=== PATIENT | male | born 1965 | race Hispanic/Latino ===

== ENCOUNTER 2018-03-27 13:15 | Emergency (ER) | payer OTHER ==
[2018-03-27 14:06] LABS: Magnesium 2.5 mg/dL (1.8-2.4)
--- NOTE | 2018-03-27 14:15 | RAD REPORT ---
EXAM DESCRIPTION: CT - Head Brain Wo Cont - 03/27/2018 2:02 pm CLINICAL HISTORY: Right-sided numbness COMPARISON: None. TECHNIQUE: Computed axial tomography of the head was obtained. IV contrast was not requested. All CT scans are performed using dose optimization technique as appropriate and may include automated exposure control or mA/KV adjustment according to patient size. FINDINGS: An intracranial bleed is not seen . The ventricles are normal in caliber. No extra-axial fluid collection is noted. Fluid within the sinuses/ mastoids is not seen. IMPRESSION: No acute intracranial abnormality is seen. If patient's symptoms persist MRI of the bra in would be recommended.
[2018-03-27] MEDS ORDERED: MEPERIDINE HCL 25 MG/0.5 ML ONE (14:16)
[2018-03-27 14:31] LABS: Absolute Lymphocytes (CBC) 1.2 K/uL (0.7-4.9); Absolute Monocytes 0.5 K/uL (0.1-1.3); Absolute Neutrophil 3.9 K/uL (1.8-8.0); Basophils % 0.7 % (0-1.3); Eosinophils % 2.1 % (0-4.4); Hematocrit 40.5 % (39.6-49.0); Lymphocytes % 20.5 % (15.3-44.8); MCH 32.6 pg (27.0-35.0); MCV 94.6 fL (80-100); MPV 9.3 fL (7.6-11.3); Monocytes % 9.5 % (3.3-12.3); RBC Red Blood Cell Count 4.28 M/uL (4.33-5.43)
[2018-03-27 14:32] LABS: Protime INR 0.93
--- NOTE | 2018-03-27 15:39 | RAD REPORT ---
EXAM DESCRIPTION: Ariane Angio03/27/2018 3:16 pm CLINICAL HISTORY: Right-sided numbness COMPARISON: None TECHNIQUE: 50 cc Isovue [address] angiogram neck was performed. Coronal and sagittal reconstruction was done. 3D MIP reconstruction was performed All CT scans are performed using dose optimization technique as appropriate and may include automated exposure control or mA/KV adjustment according to patient size. FINDINGS: The common carotid, internal carotid and external carotid arteries are normal caliber. A dissection is not seen. An occlusion is not noted IMPRESSION: Unremarkable exam
--- NOTE | 2018-03-27 15:42 | RAD REPORT ---
EXAM DESCRIPTION: CTHead angio03/27/2018 3:13 pm CLINICAL HISTORY: Right-sided numbness COMPARISON: None TECHNIQUE: CT angiogram of the head was obtained. 50 cc Isovue 370 was intravenously. Coronal and sa gittal reconstruction was performed. All CT scans are performed using dose optimization technique as appropriate and may include automated exposure control or mA/KV adjustment according to patient size. FINDINGS: The basilar, internal carotid, anterior cerebral, middle cerebral and posterior cerebral a rteries are normal caliber. An aneurysm is not seen. A significant stenosis is not noted. IMPRESSION: Unremarkable CT angiogram head.
[2018-03-27 16:10] LABS: Urine Blood NEGATIVE (NEG); Urine Glucose NEGATIVE (NEG); Urine Protein NEGATIVE (NEG)
--- NOTE | 2018-03-27 17:22 | EDPHYS ---
Physician Documentation [facility] Name: Cameron Timmons Age: 52 yrs Sex: Male : 1965 Arrival Date: 03/27/2018 Time: 13:17 Bed 25 Private MD: ED Physician Idris Griffith HPI: 03/27 13:36 This 52 yrs old Male presents to ER via EMS with complaints of Facial Droop, rn High Blood Pressure. 13:36 The patient presents to the emergency department with weakness of the right side of the rn face, that is severe. Onset: The symptoms/episode began/occurred 3 day(s) ago. Associated signs and symptoms: Pertinent positives: headache, Pertinent negatives: altered mental status, chills, fever, nausea, neck stiffness, syncope, double vision, visual field changes, loss of vision. Severity of symptoms: At their worst the symptoms were moderate in the emergency department the symptoms are unchanged. Current symptoms: paralysis or paresis, that is moderate. The patient has not experienced similar symptoms in the past. Reports right facial paralysis and tingling for 3 days, assoc with posterior headache, no vomiting, blood pressure has been running high for several days, states taking his losartan. No other focal weakness/numbness/speech problem/gait problem.. Historical: - Allergies: 13:32 No Known Allergies; kr2 - Home Meds: 13:32 losartan 50 mg oral tab 1 tab once daily [Active]; naproxen 375 mg Oral TbEC 1 tab 2 kr2 times per day [Active]; pravastatin 40 mg oral tab 1 tab once daily [Active]; sildenafil citrate 100mg [Active]; aspirin 81 mg Oral chew 1 tab once daily [Active]; - PMHx: 13:32 Hypertension; Hyperlipidemia; Erectile Dysfunction; GERD; Chronic pain; Hernia; kr2 familial hypoalphalipoproteinemia; - PSHx: 13:32 Hernia repair; kr2 - Immunization history:: Adult Immunizations unknown. - Social history:: Smoking status: Patient/guardian denies using tobacco. - Ebola Screening: : No symptoms or risks identified at this time. - Family history:: not pertinent. - Hospitalizations: : No recent hospitalization is reported. ROS: 13:36 Constitutional: Negative for fever, chills, and weight loss, Eyes: Negative for injury, rn pain, redness, and discharge, Neck: Negative for injury, pain, and swelling, Cardiovascular: Negative for chest pain, palpitations, and edema, Respiratory: Negative for shortness of breath, cough, wheezing, and pleuritic chest pain, Abdomen/GI: Negative for abdominal pain, nausea, vomiting, diarrhea, and constipation, Back: Negative for injury and pain, MS/Extremity: Negative for injury and deformity, Skin: Negative for injury, rash, and discoloration, Neuro: Negative for seizure Exam: 13:36 Constitutional: This is a well developed, well nourished patient who is awake, alert, rn and in no acute distress. Head/Face: Normocephalic, atraumatic. Eyes: Pupils equal round and reactive to light, extra-ocular motions intact. Periorbital areas with no swelling, redness, or edema. Neck: Trachea midline, no thyromegaly or masses palpated, and no cervical lymphadenopathy. Supple, full range of motion without nuchal rigidity, or vertebral point tenderness. No Meningismus. Cardiovascular: Regular rate and rhythm with a normal S1 and S2. No gallops, murmurs, or rubs. Normal PMI, no JVD. No pulse deficits. Respiratory: Lungs have equal breath sounds bilaterally, clear to auscultation and percussion. No rales, rhonchi or wheezes noted. No increased work of breathing, no retractions or nasal flaring. Abdomen/GI: Soft, non-tender, with normal bowel sounds. No distension or tympany. No guarding or rebound. No evidence of tenderness throughout. MS/ Extremity: Pulses equal, no cyanosis. Neurovascular intact. Full, normal range of motion. Equal circumference. Neuro: Awake and alert, GCS 15, oriented to person, place, time, and situation. + right almost complete paralysis of face, involves both upper and lower face, normal sensation to right face. Motor strength 5/5 in all extremities. Sensory grossly intact. Cerebellar exam normal. Vital Signs: 13:21 BP 185 / 96; Pulse 78; Resp 16; Temp 99.1(O); Pulse Ox 97% on R/A; Weight 72.57 kg; kr2 Height 5 ft. 0 in. (152.40 cm); Pain 3/10; 14:18 BP 172 / 93 RA Sitting (auto/reg); Pulse 57 MON; Resp 17 S; Pulse Ox 97% on R/A; jp3 16:13 BP 158 / 91 RA Sitting (auto/reg); Pulse 52 MON; Resp 22 S; Pulse Ox 98% on R/A; jp3 17:04 BP 151 / 93; Pulse 67; Resp 17; Pulse Ox 97% on R/A; kr2 13:21 Body Mass Index 31.25 (72.57 kg, 152.40 cm) kr2 NIH Stroke Scale Scores: 17:36 NIHSS Score: 1 kr2 MDM: 13:19 Patient medically screened. rn 17:20 Data reviewed: vital signs, nurses notes, lab test result(s), EKG, radiologic studies, rn CT scan, and as a result, I will discharge patient. Counseling: I had a detailed discussion with the patient and/or guardian regarding: the historical points, exam findings, and any diagnostic results supporting the discharge/admit diagnosis, lab results, radiology results, the need for outpatient follow up, to return to the emergency department if symptoms worsen or persist or if there are any questions or concerns that arise at home. Special discussion: I discussed with the patient/guardian in detail that at this point there is no indication for admission to the hospital. It is understood, however, that if the symptoms persist or worsen the patient needs to return immediately for re-evaluation. Based on the history and exam findings, there is no indication for further emergent testing or inpatient evaluation. I discussed with the patient/guardian the need to see the neurologist for further evaluation of the symptoms. I discussed with the patient/guardian the need to see the primary care provider for further evaluation of the symptoms. 17:20 ED course: CT/CTA negative for acute abnormality, normal neuro exam except for weakness rn of right face, involves upper and lower face.. 03/27 13:29 Order name: Basic Metabolic Panel rn 03/27 13:29 Order name: CBC with Diff rn 03/27 13:29 Order name: Magnesium rn 03/27 13:29 Order name: Protime (+inr) rn 03/27 13:29 Order name: Ptt, Activated rn 03/27 13:29 Order name: Troponin (emerg Dept Use Only) rn 03/27 14:06 Order name: Basic Metabolic Panel; Complete Time: 14:11 EDMS 03/27 14:06 Order name: Magnesium; Complete Time: 14:11 EDMS 03/27 14:10 Order name: Troponin (Emerg Dept Use Only); Complete Time: 14:11 EDMS 03/27 14:32 Order name: CBC with Automated Diff; Complete Time: 14:51 EDMS 03/27 14:33 Order name: Protime (+INR); Complete Time: 14:51 EDMS 03/27 14:33 Order name: PTT, Activated Partial Thromb; Complete Time: 14:51 EDMS 03/27 14:37 Order name: Urine Dipstick--Ancillary (enter results) eb 03/27 15:17 Order name: Glucose, Ancillary Testing; Complete Time: 15:49 EDMS 03/27 13:29 Order name: CT Head Brain wo Cont rn 03/27 13:29 Order name: EKG; Complete Time: 13:30 rn 03/27 13:29 Order name: Cardiac monitoring; Complete Time: 13:40 rn 03/27 13:29 Order name: EKG - Nurse/Tech; Complete Time: 14:10 rn 03/27 13:29 Order name: IV Saline Lock; Complete Time: 13:40 rn 03/27 13:29 Order name: Labs collected and sent; Complete Time: 13:40 rn 03/27 13:29 Order name: NPO; Complete Time: 13:40 rn 03/27 13:29 Order name: O2 Per Protocol; Complete Time: 13:40 rn 03/27 13:29 Order name: O2 Sat Monitoring; Complete Time: 13:40 rn 03/27 14:15 Order name: CT; Complete Time: 14:51 EDMS 03/27 15:39 Order name: CT; Complete Time: 15:49 EDMS 03/27 15:42 Order name: CT; Complete Time: 15:49 EDMS 03/27 16:11 Order name: Urine Dipstick-Ancillary; Complete Time: 16:50 EDMS Administered Medications: 14:15 Drug: Demerol 25 mg Route: IVP; Site: left antecubital; kr2 14:35 Follow up: Response: No adverse reaction; Pain is decreased kr2 Point of Care Testing: Blood Glucose: 13:33 Blood Glucose: 96 mg/dL; kr2 Ranges: Critical Glucose Levels:Adult <50 mg/dl or >400 mg/dl <40 mg/dl or >180 mg/dl Disposition: 03/27/18 17:21 Discharged to Home. Impression: Wolff's palsy. - Condition is Stable. - Discharge Instructions: Wolff Palsy, Adult. - Prescriptions for Acyclovir 800 mg Oral Tablet - take 1 tablet by ORAL route 5 times per day for 10 days; 50 tablet. Medrol (Rafal) 4 mg Oral Tablets, Dose Pack - take 1 tablet by ORAL route as directed - follow package instructions; 1 packet. - Medication Reconciliation Form, Thank You Letter, Antibiotic Education, Prescription Opioid Use, Work release form form. - Follow up: Zachary Toscano MD; When: 5 - 6 days; Reason: Recheck today's complaints, Re-evaluation by your physician. - Problem is new. - Symptoms are unchanged. NIH Stroke Scale - NIH Stroke Score Date: 03/27/2018 Time: 17:36 Total Score = 1 1a. Level of Consciousness (LOC) - 0(Alert) 1b. Level of Consciousness (LOC) (Year \T\ Age) - 0(Both) 1c. LOC Commands (Open \T\ Closes Eyes/Glass Washer) - 0(Both) 2. Best Gaze (Lateral Gaze Paresis) - 0(Normal) 3. Visual Field Loss - 0(No visual loss) 4. Facial Palsy - 1(Minor Paralysis) 5a. Left Arm: Motor (10-second hold) - 0(No drift) 5b. Right Arm: Motor (10-second hold) - 0(No drift) 6a. Left Leg: Motor (5-second hold - always test supine) - 0(No drift) 6b. Right Leg: Motor (5-second hold - always test supine) - 0(No drift) 7. Limb Ataxia (finger/nose \T\ heel/silver - test with eyes open) - 0(Absent) 8. Sensory Loss (pinprick arms/legs/face) - 0(Normal) 9. Best Language: Aphasia (description/naming/reading) - 0(No aphasia) 10. Dysarthria (speech clarity - read or repeat words) - 0(Normal) 11. Extinction and Inattention (visual/tactile/auditory/spatial/personal) - 0(No abnormality) Initials: kr2 Signatures: Dispatcher [employer] Idris Grossman MD MD rn Reaves, Karey, RN RN kr2 Corrections: (The following items were deleted from the chart) 17:39 17:21 03/27/2018 17:21 Discharged to Home. Impression: Wolff's palsy. Condition kr2 is Stable. Forms are Medication Reconciliation Form, Thank You Letter, Antibiotic Education, Prescription Opioid Use. Follow up: Zachary Toscano; When: 5 - 6 days; Reason: Recheck today's complaints, Re-evaluation by your physician. Problem is new. Symptoms are unchanged. rn
--- NOTE | 2018-03-27 17:22 | ER ---
Nurse's Notes [facility] Name: Cameron Timmons Age: 52 yrs Sex: Male : 1965 Arrival Date: 03/27/2018 Time: 13:17 Bed 25 Private MD: Diagnosis: Wolff's palsy Presentation: 03/27 13:18 Presenting complaint: EMS states: patient was seen at the [facility] across the [facility] today kr2 for numbness to the right side of his face, facial droop and slurred speech that started Monday. He has a history of hypertension and hyperlipidemia. Transition of care: patient was received from another setting of care (ambulatory primary care physician practice), [facility]. Onset of symptoms was March 25, 2018. Risk Assessment: Do you want to hurt yourself or someone else? Patient reports no desire to harm self or others. Initial Sepsis Screen: Does the patient meet any 2 criteria? No. Patient's initial sepsis screen is negative. Does the patient have a suspected source of infection? No. Patient's initial sepsis screen is negative. Care prior to arrival: IV initiated. 20 GA, in the right antecubital area. 13:18 Method Of Arrival: EMS: [facility] kr2 13:18 Acuity: BONITA 3 kr2 13:34 Pre-hospital glucose is not applicable to this patient. kr2 Triage Assessment: 13:33 The onset of the patients symptoms was March 25, 2018 at 17:00. General: Appears in no kr2 apparent distress. comfortable, well groomed, well developed, well nourished, Behavior is calm, cooperative, appropriate for age. 13:34 Neuro: Reports pressure to back of head. kr2 Stroke Activation: Symptom onset > 6 hours Physician: Stroke Attending; Name: ; Notified At: ; Arrived At: Physician: Chief Stroke Resident; Name: ; Notified At: ; Arrived At: Physician: Stroke Resident; Name: ; Notified At: ; Arrived At: Physician: ED Attending; Name: ; Notified At: ; Arrived At: Physician: ED Resident; Name: ; Notified At: ; Arrived At: Historical: - Allergies: 13:32 No Known Allergies; kr2 - Home Meds: 13:32 losartan 50 mg oral tab 1 tab once daily [Active]; naproxen 375 mg Oral TbEC 1 tab 2 kr2 times per day [Active]; pravastatin 40 mg oral tab 1 tab once daily [Active]; sildenafil citrate 100mg [Active]; aspirin 81 mg Oral chew 1 tab once daily [Active]; - PMHx: 13:32 Hypertension; Hyperlipidemia; Erectile Dysfunction; GERD; Chronic pain; Hernia; kr2 familial hypoalphalipoproteinemia; - PSHx: 13:32 Hernia repair; kr2 - Immunization history:: Adult Immunizations unknown. - Social history:: Smoking status: Patient/guardian denies using tobacco. - Ebola Screening: : No symptoms or risks identified at this time. - Family history:: not pertinent. - Hospitalizations: : No recent hospitalization is reported. Screenin:22 Abuse screen: Denies threats or abuse. Denies injuries from another. Nutritional kr2 screening: No deficits noted. Tuberculosis screening: No symptoms or risk factors identified. Fall Risk None identified. Assessment: 13:22 Pain: Complains of pain in occipital area and base of the skull Pain does not radiate. kr2 Pain currently is 3 out of 10 on a pain scale. Quality of pain is described as pressure, Is continuous, Alleviated by nothing. Neuro: Level of Consciousness is awake, alert, obeys commands, Oriented to person, place, time, situation, Appropriate for age Systems Admin are equal bilaterally Moves all extremities. Speech is normal, Facial droop on right, Pupils are PERRLA, Numbness in right side of face. 13:22 General: Appears in no apparent distress. Behavior is calm, cooperative, appropriate kr2 for age. Cardiovascular: Capillary refill < 3 seconds in bilateral fingers Patient's skin is warm and dry. Respiratory: Airway is patent Respiratory effort is even, unlabored, Respiratory pattern is regular, symmetrical. GI: Abdomen is round non-distended, Bowel sounds present X 4 quads. : Denies burning with urination. EENT: Oral mucosa is moist. Derm: Skin is intact, is healthy with good turgor, Skin is pink, warm \T\ dry. Musculoskeletal: Circulation, motion, and sensation intact. 13:44 T-PA (Activase) Screening:. kr2 14:15 Reassessment: Patient appears in no apparent distress at this time. Patient and/or kr2 family updated on plan of care and expected duration. Pain level reassessed. Patient is alert, oriented x 3, equal unlabored respirations, skin warm/dry/pink. 15:11 Reassessment: Patient appears in no apparent distress at this time. Patient and/or kr2 family updated on plan of care and expected duration. Pain level reassessed. Patient is alert, oriented x 3, equal unlabored respirations, skin warm/dry/pink. Pain is decreased Patient states feeling better. 16:00 Reassessment: Patient appears in no apparent distress at this time. Patient and/or kr2 family updated on plan of care and expected duration. Pain level reassessed. Patient is alert, oriented x 3, equal unlabored respirations, skin warm/dry/pink. Patient denies pain at this time. 17:03 Reassessment: Patient appears in no apparent distress at this time. Patient and/or kr2 family updated on plan of care and expected duration. Pain level reassessed. Patient is alert, oriented x 3, equal unlabored respirations, skin warm/dry/pink. Patient denies pain at this time. 17:35 Patient has been NPO before screening. The patient is alert, and able to follow kr2 commands. The patient does not exhibit slurred or garbled speech. The patient is not exhibiting difficulty speaking. The patient does not exhibit difficulty understanding words. The patient is able to swallow own secretions with no drooling or need for suction. Patient tolerated one teaspoon of water. No drooling, immediate coughing, gurgling, or clearing of the throat was noted. The patient tolerated 90mL of water. No drooling, immediate coughing, gurgling, or clearing of the throat was noted. The patient passed the bedside swallow screening. Oral medications may be given as ordered. Contact Physician for further diet orders. Provider notified of bedside swallow screening results: Idris Griffith MD. 17:37 Reassessment: Patient appears in no apparent distress at this time. kr2 Vital Signs: 13:21 BP 185 / 96; Pulse 78; Resp 16; Temp 99.1(O); Pulse Ox 97% on R/A; Weight 72.57 kg; kr2 Height 5 ft. 0 in. (152.40 cm); Pain 3/10; 14:18 BP 172 / 93 RA Sitting (auto/reg); Pulse 57 MON; Resp 17 S; Pulse Ox 97% on R/A; jp3 16:13 BP 158 / 91 RA Sitting (auto/reg); Pulse 52 MON; Resp 22 S; Pulse Ox 98% on R/A; jp3 17:04 BP 151 / 93; Pulse 67; Resp 17; Pulse Ox 97% on R/A; kr2 13:21 Body Mass Index 31.25 (72.57 kg, 152.40 cm) kr2 NIH Stroke Scale Scores: 17:36 NIHSS Score: 1 kr2 ED Course: 13:15 Patient has correct armband on for positive identification. Bed in low position. Call kr2 light in reach. Side rails up X2. hospital monitor on. Pulse ox on. NIBP on. Door closed. Warm blanket given. Head of bed elevated. 13:17 Patient arrived in ED. kr2 13:19 Idris Griffith MD is Attending Physician. rn 13:21 Triage completed. kr2 13:34 Arm band placed on. kr2 13:35 Urine collected: clean catch specimen, clear, desiree colored. jp3 13:39 Anel Vasquez, AIDEE is Primary Nurse. kr2 13:39 EKG done, by arrt technologist. reviewed by Idris Griffith MD. 3 13:[address] via wheelchair. sw 14:06 CT completed. Patient tolerated procedure well. Patient moved back from CT. sw 15:[address] vm2 15:13 CT completed. Patient tolerated procedure well. Patient moved back from CT. vm2 17:21 Zachary Toscano MD is Referral Physician. rn 17:38 No provider procedures requiring assistance completed. IV discontinued, intact, kr2 bleeding controlled, No redness/swelling at site. Pressure dressing applied. Administered Medications: 14:15 Drug: Demerol 25 mg Route: IVP; Site: left antecubital; kr2 14:35 Follow up: Response: No adverse reaction; Pain is decreased kr2 Point of Care Testing: Blood Glucose: 13:33 Blood Glucose: 96 mg/dL; kr2 Ranges: Outcome: 17:21 Discharge ordered by . rn 17:38 Discharged to home ambulatory, with family. kr2 17:38 Condition: good 17:38 Discharge instructions given to patient, family, Instructed on discharge instructions, follow up and referral plans. medication usage, Demonstrated understanding of instructions, follow-up care, medications, Prescriptions given X 2. 17:39 Patient left the ED. kr2 NIH Stroke Scale - NIH Stroke Score Date: 03/27/2018 Time: 17:36 Total Score = 1 1a. Level of Consciousness (LOC) - 0(Alert) 1b. Level of Consciousness (LOC) (Year \T\ Age) - 0(Both) 1c. LOC Commands (Open \T\ Closes Eyes/Sales Engineer) - 0(Both) 2. Best Gaze (Lateral Gaze Paresis) - 0(Normal) 3. Visual Field Loss - 0(No visual loss) 4. Facial Palsy - 1(Minor Paralysis) 5a. Left Arm: Motor (10-second hold) - 0(No drift) 5b. Right Arm: Motor (10-second hold) - 0(No drift) 6a. Left Leg: Motor (5-second hold - always test supine) - 0(No drift) 6b. Right Leg: Motor (5-second hold - always test supine) - 0(No drift) 7. Limb Ataxia (finger/nose \T\ heel/silver - test with eyes open) - 0(Absent) 8. Sensory Loss (pinprick arms/legs/face) - 0(Normal) 9. Best Language: Aphasia (description/naming/reading) - 0(No aphasia) 10. Dysarthria (speech clarity - read or repeat words) - 0(Normal) 11. Extinction and Inattention (visual/tactile/auditory/spatial/personal) - 0(No abnormality) Initials: [facility] Signatures: Idris Griffith MD MD rn Warren, Shannon sw McGuire, Victoria 2 Anel Vasquez RN RN 2 Brandi Cottrell 3 [place] Lozoya 3 Corrections: (The following items were deleted from the chart) 13:25 13:18 Presenting complaint: EMS states: patient was seen at the [facility] across the [address] today for numbness to the right side of his face, facial droop and slurred speech that started Monday. He has a history of hypertension and hyperlipidemia [facility] 13:26 13:22 Neuro: Level of Consciousness is awake, alert, obeys commands, Oriented [facility] to person, place, time, situation, Appropriate for age Systems Admin are equal bilaterally Moves all extremities. Speech is slurred, Facial droop on right, Pupils are PERRLA, Numbness in right side of face [facility] 13:44 13:18 Presenting complaint: EMS states: patient was seen at the [facility] across the [address] today for numbness to the left side of his face, facial droop and slurred speech that started Monday. He has a history of hypertension and hyperlipidemia kr2 13:44 13:22 Neuro: Level of Consciousness is awake, alert, obeys commands, Oriented kr2 to person, place, time, situation, Appropriate for age Systems Admin are equal bilaterally Moves all extremities. Speech is slurred, Facial droop on left, Pupils are PERRLA, Numbness in left side of face kr2 14:24 13:22 Neuro: Level of Consciousness is awake, alert, obeys commands, Oriented kr2 to person, place, time, situation, Appropriate for age Systems Admin are equal bilaterally Moves all extremities. Speech is slurred, Facial droop on right, Pupils are PERRLA, Numbness in left side of face kr2 17:37 13:22 Neuro: Level of Consciousness is awake, alert, obeys commands, Oriented kr2 to person, place, time, situation, Appropriate for age Systems Admin are equal bilaterally Moves all extremities. Speech is slurred, Facial droop on right, Pupils are PERRLA, Numbness in right side of face kr2 17:37 13:44 NIHSS Score: 2 [place] [id number]
--- NOTE | 2018-03-27 18:21 | EKG ---
Test Date: 2018-03-27 Test Time: 13:33:49 [place]ethistler Operator: DANN MEASUREMENT RESULTS: Intervals: Rate: 59 RI: 156 QRSD: 96 QT: 402 QTc: 397 [place]: P: 28 RI: 156 QRS: -25 T: -18 INTERPRETIVE STATEMENTS: Sinus bradycardia Voltage criteria for left ventricular hypertrophy Nonspecific T wave abnormality Abnormal ECG No previous ECG available for comparison Electronically Signed On 03-27-18 18:20:37 CDT by Bishop العراقي
== END 2018-03-27 17:39 | disposition home or self-care (01) ==
LOC: ER 13:15
DX: G51.0 Bell's palsy (principal); I10 Essential (primary) hypertension; E78.5 Hyperlipidemia, unspecified; R51 Headache; Z79.82 Long term (current) use of aspirin
CPT/HCPCS: 36415; 70450; 70496; 70498; 80048; 81003; 82962; 83735; 84484; 85025; 85610; 85730; 93005; 96374; 99285; J2175; Q9967

== ENCOUNTER 2018-07-22 12:53 | Emergency (ER) | payer OTHER ==
--- NOTE | 2018-07-22 14:04 | ER ---
Nurse's Notes [facility] Name: Cameron Timmons Age: 53 yrs Sex: Male : 1965 Arrival Date: 07/22/2018 Time: 12:54 Bed Waiting Private MD: None, None Diagnosis: Cellulitis of right upper limb;Cellulitis of chest wall-right lateral chest wall Presentation: 07/22 13:06 Presenting complaint: Patient states: Rash under right axilla for one week getting la1 worse. Transition of care: patient was not received from another setting of care. Onset of symptoms was July 22, 2018. Risk Assessment: Do you want to hurt yourself or someone else? Patient reports no desire to harm self or others. Initial Sepsis Screen: Does the patient meet any 2 criteria? No. Patient's initial sepsis screen is negative. Does the patient have a suspected source of infection? No. Patient's initial sepsis screen is negative. Care prior to arrival: None. 13:06 Method Of Arrival: Ambulatory la1 13:06 Acuity: BONITA 5 la1 Historical: - Allergies: 13:07 No Known Allergies; la1 - PMHx: 13:07 Chronic pain; Erectile Dysfunction; familial hypoalphalipoproteinemia; GERD; Hernia; la1 Hyperlipidemia; Hypertension; - Immunization history:: Adult Immunizations. - Social history:: Smoking status: Patient/guardian denies using tobacco. - Ebola Screening: : No symptoms or risks identified at this time. Screenin:01 Abuse screen: Denies threats or abuse. Nutritional screening: No deficits noted. la1 Tuberculosis screening: No symptoms or risk factors identified. Fall Risk None identified. Assessment: 14:00 General: Appears in no apparent distress. Behavior is calm, cooperative. Pain: Denies la1 pain. Neuro: Level of Consciousness is awake, alert, obeys commands, Oriented to person, place, time, situation. Cardiovascular: Capillary refill < 3 seconds Patient's skin is warm and dry. Respiratory: Airway is patent Respiratory effort is even, unlabored, Respiratory pattern is regular, symmetrical, Breath sounds are clear bilaterally. GI: No signs and/or symptoms were reported involving the gastrointestinal system. : No signs and/or symptoms were reported regarding the genitourinary system. Derm: Rash noted that is itchy, papular, red, on anterior aspect of right lateral abdomen. Vital Signs: 13:07 BP 160 / 87; Pulse 71; Resp 16; Temp 97.3; Pulse Ox 98% on R/A; Weight 74.84 kg; Height la1 5 ft. 0 in. (152.40 cm); 13:07 Body Mass Index 32.22 (74.84 kg, 152.40 cm) la1 ED Course: 12:54 Patient arrived in ED. sb2 12:54 None, None is Private Physician. sb2 13:06 Triage completed. la1 13:07 Arm band placed on left wrist. la1 13:22 Birgit Navarro FNP-C is PHCP. kb 13:22 Go Rowell MD is Attending Physician. kb 14:01 Patient has correct armband on for positive identification. la1 14:03 No provider procedures requiring assistance completed. Patient did not have IV access la1 during this emergency room visit. Administered Medications: No medications were administered Outcome: 14:03 Discharged to home ambulatory. la1 14:03 Condition: stable 14:03 Discharge instructions given to patient, Instructed on discharge instructions, follow up and referral plans. medication usage, Demonstrated understanding of instructions, follow-up care, medications, Prescriptions given X 1. 14:04 Discharge ordered by MD. kb 14:12 Patient left the ED. la1 Signatures: Birgit Navarro FNP-C FNP-Ckb Attema, Lee, RN RN la1 Helena Davis sb2
--- NOTE | 2018-07-22 14:04 | EDPHYS ---
Physician Documentation [facility] Name: Cameron Timmons Age: 53 yrs Sex: Male : 1965 Arrival Date: 07/22/2018 Time: 12:54 Bed Waiting Private MD: None, None ED Physician Go Rowell HPI: 07/22 14:06 This 53 yrs old Male presents to ER via Ambulatory with complaints of Rash. kb 14:06 the patient presents with a swollen area of the right bicep and right lateral anterior kb chest. Description: erythematous, swollen, warm. Onset: The symptoms/episode began/occurred 1 week(s) ago. Possible cause(s): unknown. Associated signs and symptoms: Pertinent positives: erythema, swelling, Pertinent negatives: discharge, drainage, foreign body sensation, fever, headache, nausea, shortness of breath, vomiting. Modifying factors: the symptoms are alleviated by nothing, the symptoms are aggravated by nothing. Severity of symptoms: At their worst the symptoms were moderate, in the emergency department the symptoms are unchanged. The patient has not experienced similar symptoms in the past. The patient has not recently seen a physician. Pt reports rash that started out like an insect bite then spread. Tried using cortisone cream, but it made it worse. Historical: - Allergies: 13:07 No Known Allergies; la1 - PMHx: 13:07 Chronic pain; Erectile Dysfunction; familial hypoalphalipoproteinemia; GERD; Hernia; la1 Hyperlipidemia; Hypertension; - Immunization history:: Adult Immunizations. - Social history:: Smoking status: Patient/guardian denies using tobacco. - Ebola Screening: : No symptoms or risks identified at this time. ROS: 14:05 Constitutional: Negative for fever, chills, and weight loss, ENT: Negative for injury, kb pain, and discharge, Neck: Negative for injury, pain, and swelling, Cardiovascular: Negative for chest pain, palpitations, and edema, Respiratory: Negative for shortness of breath, cough, wheezing, and pleuritic chest pain, Abdomen/GI: Negative for abdominal pain, nausea, vomiting, diarrhea, and constipation, Back: Negative for injury and pain, MS/Extremity: Negative for injury and deformity, Neuro: Negative for headache, weakness, numbness, tingling, and seizure. 14:05 Skin: Positive for erythema, swelling, of the right lateral anterior chest and right bicep. Exam: 14:05 Constitutional: This is a well developed, well nourished patient who is awake, alert, kb and in no acute distress. Head/Face: Normocephalic, atraumatic. Neck: Trachea midline, no thyromegaly or masses palpated, and no cervical lymphadenopathy. Supple, full range of motion without nuchal rigidity, or vertebral point tenderness. No Meningismus. Chest/axilla: Normal chest wall appearance and motion. Nontender with no deformity. No lesions are appreciated. Cardiovascular: Regular rate and rhythm with a normal S1 and S2. No gallops, murmurs, or rubs. Normal PMI, no JVD. No pulse deficits. Respiratory: Lungs have equal breath sounds bilaterally, clear to auscultation and percussion. No rales, rhonchi or wheezes noted. No increased work of breathing, no retractions or nasal flaring. Abdomen/GI: Soft, non-tender, with normal bowel sounds. No distension or tympany. No guarding or rebound. No evidence of tenderness throughout. MS/ Extremity: Pulses equal, no cyanosis. Neurovascular intact. Full, normal range of motion. Neuro: Awake and alert, GCS 15, oriented to person, place, time, and situation. Cranial nerves II-XII grossly intact. Motor strength 5/5 in all extremities. Sensory grossly intact. Cerebellar exam normal. Normal gait. 14:05 Skin: cellulitis, that is mild, that is moderate, on the right bicep and right lateral anterior chest. Vital Signs: 13:07 BP 160 / 87; Pulse 71; Resp 16; Temp 97.3; Pulse Ox 98% on R/A; Weight 74.84 kg; Height la1 5 ft. 0 in. (152.40 cm); 13:07 Body Mass Index 32.22 (74.84 kg, 152.40 cm) la1 MDM: 13:59 Patient medically screened. kb 14:05 Data reviewed: vital signs, nurses notes. Data interpreted: Pulse oximetry: on room air kb is 98 %. Interpretation: normal. Administered Medications: No medications were administered Disposition: 07/23 07:39 Co-signature as Attending Physician, Go Rowell MD I agree with the assessment and clem plan of care. Disposition: 07/22/18 14:04 Discharged to Home. Impression: Cellulitis of right upper limb, Cellulitis of chest wall - right lateral chest wall. - Condition is Stable. - Discharge Instructions: Cellulitis, Adult, [id number]. - Prescriptions for Bactrim DS 800- 160 mg Oral Tablet - take 1 tablet by ORAL route every 12 hours for 10 days; 20 tablet. - Medication Reconciliation Form, Thank You Letter, Antibiotic Education, Prescription Opioid Use form. - Follow up: Emergency Department; When: As needed; Reason: Worsening of condition. Follow up: Private Physician; When: 2 - 3 days; Reason: Recheck today's complaints, Continuance of care, Re-evaluation by your physician. Signatures: Birgit Navarro, METER AND SERVICE LINE INSPECTOR-C METER AND SERVICE LINE INSPECTOR-Héctorb Go Rowell MD MD cha Attema, Lee RN RN la1 Corrections: (The following items were deleted from the chart) 07/22 14:12 14:04 07/22/2018 14:04 Discharged to Home. Impression: Cellulitis of right upper limb; la1 Cellulitis of chest wall - right lateral chest wall. Condition is Stable. Forms are Medication Reconciliation Form, Thank You Letter, Antibiotic Education, Prescription Opioid Use. Follow up: Emergency Department; When: As needed; Reason: Worsening of condition. Follow up: Private Physician; When: 2 - 3 days; Reason: Recheck today's complaints, Continuance of care, Re-evaluation by your physician. kb
== END 2018-07-22 14:12 | disposition home or self-care (01) ==
LOC: ER 12:53
DX: L03.113 Cellulitis of right upper limb (principal); L03.313 Cellulitis of chest wall
CPT/HCPCS: 99282

== ENCOUNTER 2020-03-03 12:10 | Emergency (ER) | payer OTHER ==
--- NOTE | 2020-03-03 13:32 | EDPHYS ---
Physician Documentation [facility] Name: Cameron Timmons Age: 54 yrs Sex: Male : 1965 Arrival Date: 03/03/2020 Time: 12:29 Bed 12 Private MD: ED Physician Go Rowell HPI: 03/03 13:27 This 54 yrs old Male presents to ER via Ambulatory with complaints of Bee kb Sting, Rash - on back,arms and abdomen. 13:27 The patient's rash thought to be caused by an unknown cause. The rash is located on the kb posterior aspect of right lateral abdomen and anterior aspect of right lateral abdomen. The rash can be described as macular, papular. Onset: The symptoms/episode began/occurred yesterday. Associated signs and symptoms: Pertinent positives: itching. Severity of symptoms: At their worst the symptoms were moderate in the emergency department the symptoms are unchanged. The patient has not experienced similar symptoms in the past. The patient has not recently seen a physician. Pt reports he was stung by a bee on Monday, developed itchy rash on Monday. Historical: - Allergies: 12:32 No Known Allergies; ll1 - PMHx: 12:32 Hypertension; familial hypoalphalipoproteinemia; Erectile Dysfunction; Chronic pain; ll1 GERD; Hernia; Hyperlipidemia; - Immunization history:: Flu vaccine is not up to date. - Social history:: Smoking status: Patient denies any tobacco usage or history of. Patient uses alcohol, Patient/guardian denies using street drugs. ROS: 13:25 Constitutional: Negative for fever, chills, and weight loss, Cardiovascular: Negative kb for chest pain, palpitations, and edema, Respiratory: Negative for shortness of breath, cough, wheezing, and pleuritic chest pain, Abdomen/GI: Negative for abdominal pain, nausea, vomiting, diarrhea, and constipation, Back: Negative for injury and pain, MS/Extremity: Negative for injury and deformity, Neuro: Negative for headache, weakness, numbness, tingling, and seizure. 13:25 Skin: Positive for rash, of the anterior aspect of right lateral abdomen and posterior aspect of right lateral abdomen. Exam: 13:25 Constitutional: This is a well developed, well nourished patient who is awake, alert, kb and in no acute distress. Head/Face: Normocephalic, atraumatic. Chest/axilla: Normal chest wall appearance and motion. Nontender with no deformity. No lesions are appreciated. Cardiovascular: Regular rate and rhythm with a normal S1 and S2. No gallops, murmurs, or rubs. Normal PMI, no JVD. No pulse deficits. Respiratory: Lungs have equal breath sounds bilaterally, clear to auscultation and percussion. No rales, rhonchi or wheezes noted. No increased work of breathing, no retractions or nasal flaring. Abdomen/GI: Soft, non-tender, with normal bowel sounds. No distension or tympany. No guarding or rebound. No evidence of tenderness throughout. MS/ Extremity: Pulses equal, no cyanosis. Neurovascular intact. Full, normal range of motion. Neuro: Awake and alert, GCS 15, oriented to person, place, time, and situation. Cranial nerves II-XII grossly intact. Motor strength 5/5 in all extremities. Sensory grossly intact. Cerebellar exam normal. Normal gait. 13:25 Skin: rash a moderate rash is noted, rash can be described as macular, papular, on the posterior aspect of right lateral abdomen and anterior aspect of right lateral abdomen. Vital Signs: 12:32 BP 161 / 112; Pulse 68; Resp 18; Temp 99.1; Pulse Ox 98% ; Pain 0/10; ll1 MDM: 13:07 Patient medically screened. kb 13:20 Data reviewed: vital signs, nurses notes. Data interpreted: Pulse oximetry: on room air kb is 98 %. Interpretation: normal. 13:28 Counseling: I had a detailed discussion with the patient and/or guardian regarding: the kb historical points, exam findings, and any diagnostic results supporting the discharge/admit diagnosis, the need for outpatient follow up, a family practitioner, to return to the emergency department if symptoms worsen or persist or if there are any questions or concerns that arise at home. Administered Medications: 14:00 Drug: predniSONE 40 mg Route: PO; ss Disposition: 20:34 Co-signature as Attending Physician, Go Rowell MD I agree with the assessment and clem plan of care. Disposition: 03/03/20 13:31 Discharged to Home. Impression: Rash and other nonspecific skin eruption. - Condition is Stable. - Discharge Instructions: Rash, [id number], Allergies, [id number]. - Prescriptions for Pepcid 20 mg Oral Tablet - take 1 tablet by ORAL route every 12 hours for 5 days; 10 tablet. Prednisone 20 mg Oral Tablet - take 1 tablet by ORAL route once daily for 5 days; 5 tablet. - Medication Reconciliation Form, Thank You Letter, Antibiotic Education, Prescription Opioid Use form. - Follow up: Emergency Department; When: As needed; Reason: Worsening of condition. Follow up: Private Physician; When: 2 - 3 days; Reason: Recheck today's complaints, Continuance of care, Re-evaluation by your physician. Signatures: Birgit Navarro, FABIEN-C PLASTIC PRODUCTION MACHINE SETTER-CkGo Chand MD MD cha Smirch, Shelby, RN RN ss Henry Herrera RN RN ll1 Corrections: (The following items were deleted from the chart) 14:17 13:31 03/03/2020 13:31 Discharged to Home. Impression: Rash and other nonspecific skin ll1 eruption. Condition is Stable. Forms are Medication Reconciliation Form, Thank You Letter, Antibiotic Education, Prescription Opioid Use. Follow up: Emergency Department; When: As needed; Reason: Worsening of condition. Follow up: Private Physician; When: 2 - 3 days; Reason: Recheck today's complaints, Continuance of care, Re-evaluation by your physician. kb
--- NOTE | 2020-03-03 13:32 | ER ---
Nurse's Notes [facility] Name: Cameron Timmons Age: 54 yrs Sex: Male : 1965 Arrival Date: 03/03/2020 Time: 12:29 Bed 12 Private MD: Diagnosis: Rash and other nonspecific skin eruption Presentation: 03/03 12:32 Chief complaint: Patient states: Insect sting (bee) to back on Monday. Started to have ll1 rash yesterday to back, arm , and abdomen. Slight itch. Coronavirus screen: Proceed with normal triage. Patient denies a cough. Patient denies shortness of breath or difficulty breathing. Patient denies measured and/or subjective temperature greater than 100.4F prior to today's visit. Patient denies travel on a cruise ship or to a country the [facility] currently lists as an affected area. Patient denies contact with known and/or suspected case of COVID-19. Ebola Screen: Patient denies travel to an Ebola-affected area in the 21 days before illness onset. Onset: The symptoms/episode began/occurred yesterday. Anaphylaxis evaluation, the patient reports or I have noted the following symptoms which indicate a significant risk of anaphylaxis:. Initial Sepsis Screen: Does the patient meet any 2 criteria? No. Patient's initial sepsis screen is negative. Risk Assessment: Do you want to hurt yourself or someone else? Patient reports no desire to harm self or others. Onset of symptoms was March 01, 2020. 12:32 Method Of Arrival: Ambulatory ll1 12:32 Acuity: BONITA 4 ll1 Historical: - Allergies: 12:32 No Known Allergies; ll1 - PMHx: 12:32 Hypertension; familial hypoalphalipoproteinemia; Erectile Dysfunction; Chronic pain; ll1 GERD; Hernia; Hyperlipidemia; - Immunization history:: Flu vaccine is not up to date. - Social history:: Smoking status: Patient denies any tobacco usage or history of. Patient uses alcohol, Patient/guardian denies using street drugs. Screenin:07 Abuse screen: Denies threats or abuse. Denies injuries from another. Nutritional ss screening: No deficits noted. Tuberculosis screening: Never had TB. Fall Risk None identified. Assessment: 13:07 General: Appears in no apparent distress. comfortable, Behavior is calm, cooperative. ss Pain: Denies pain. Neuro: Level of Consciousness is awake, alert, obeys commands, Oriented to person, place, time, situation, Denies blurred vision dizziness. Cardiovascular: Capillary refill < 3 seconds is brisk in bilateral. Respiratory: Airway is patent Respiratory effort is even, unlabored, Respiratory pattern is regular, symmetrical, Breath sounds are clear bilaterally. GI: Patient currently denies diarrhea, nausea, vomiting. Derm: Skin is intact, is healthy with good turgor, Skin is dry, Skin is pink, warm \T\ dry. normal. Musculoskeletal: Circulation, motion, and sensation intact. Range of motion: intact in all extremities, Swelling absent. Vital Signs: 12:32 BP 161 / 112; Pulse 68; Resp 18; Temp 99.1; Pulse Ox 98% ; Pain 0/10; ll1 ED Course: 12:29 Patient arrived in ED. am2 12:32 Arm band placed on Patient notified of wait time. ll1 12:34 Triage completed. ll1 13:07 Birgit Navarro FNP-C is [facility]. kb 13:07 Go Rowell MD is Attending Physician. kb 13:07 Patient has correct armband on for positive identification. Bed in low position. Call ss light in reach. 13:53 Elvira Silver, RN is Primary Nurse. ss 14:17 No provider procedures requiring assistance completed. Patient did not have IV access ss during this emergency room visit. Administered Medications: 14:00 Drug: predniSONE 40 mg Route: PO; ss Outcome: 13:31 Discharge ordered by . kb 14:17 Patient left the ED. ll1 14:17 Discharged to home ambulatory. ss 14:17 Condition: good 14:17 Discharge instructions given to patient, Instructed on discharge instructions, follow up and referral plans. medication usage. Signatures: Birgit Navarro FNP-C FNP-Elvira Cavazos, RN AIDEE En[place] Sousa Henry Olvera RN RN 1
[2020-03-03] MEDS ORDERED: predniSONE 20 MG TAB ONE (14:03)
[2020-03-03 14:27] VITALS: BP 161/112; TEMP 99.1; O2SAT 98
== END 2020-03-03 14:17 | disposition home or self-care (01) ==
LOC: ER 12:10
DX: R21 Rash and other nonspecific skin eruption (principal); T63.441A Toxic effect of venom of bees, accidental (unintentional), initial encounter; I10 Essential (primary) hypertension
CPT/HCPCS: 99283; J7512

== ENCOUNTER 2021-01-18 09:37 | Emergency (ER) | payer OTHER ==
--- NOTE | 2021-01-18 10:11 | RAD REPORT ---
EXAM DESCRIPTION: CT - Stone Protocol - 01/18/2021 10:00 am CLINICAL HISTORY: Abdominal pain. Right flank pain COMPARISON: None. TECHNIQUE: Computed axial tomography of the abdomen pelvis was obtained without oral or IV contrast. Lack of IV and oral contrast limits evaluation of solid organs, bowel, and vessels. Coronal reformat nicho images were obtained and reviewed. All CT scans are performed using dose optimization technique as appropriate and may include automated exposure control or mA/KV adjustment according to patient size. FINDINGS: Small bilateral renal calculi. [id number] right hydronephrosis. Right ureter is dila nicho. A 5 millimeter calculus right UVJ. Parapelvic left renal cysts. No left ureteral calculus. Several subcentimeter hepatic lesions. Spleen, pancreas and adrenals appear grossly normal There is no evidence of diverticulitis. The appendix appears normal. Small bilateral inguinal hernias IMPRESSION: 5 millimeter calculus right UVJ resulting in mild moderate right hydronephrosis Small hepatic low-density lesions are nonspecific. Nonemergent liver ultrasound recommended for [facility] evaluation
[2021-01-18 10:17] LABS: Absolute Lymphocytes (CBC) 0.6 K/uL (0.7-4.9); Basophils % 0.4 % (0-1.3); Hematocrit 39.5 % (39.6-49.0); Lymphocytes % 6.9 % (15.3-44.8); MPV 8.6 fL (7.6-11.3); RBC Red Blood Cell Count 4.24 M/uL (4.33-5.43)
[2021-01-18] MEDS ORDERED: MORPHINE 4 MG/ML SYR ONE (10:23)
[2021-01-18] MEDS ORDERED: NA CHLORIDE 0.9% 1,000 ML ONE (10:23)
[2021-01-18] MEDS ORDERED: ONDANSETRON 4 MG/2 ML VIAL ONE (10:23)
[2021-01-18 10:32] LABS: Albumin 3.9 g/dL (3.4-5.0); Bilirubin Direct 0.1 mg/dL (0-0.2); Bilirubin Total 0.5 mg/dL (0.2-1.0); Potassium 3.9 mmol/L (3.5-5.1); Protein, Total 7.3 g/dL (6.4-8.2)
[2021-01-18 11:00] LABS: Blood Morphology Comment NOT SEEN (NOT SEEN); Platelet Estimate ADEQ
[2021-01-18] MEDS ORDERED: TAMSULOSIN 0.4 MG SR CAP ONE (11:30)
[2021-01-18 11:42] LABS: Urine Blood 1+ (Negative); Urine Glucose Negative (Negative); Urine Protein Negative (Negative); Urine Specific Gravity 1.025 (1.005-1.030); Urine pH 5.5 (5.0-7.0)
--- NOTE | 2021-01-18 12:15 | EDPHYS ---
Physician Documentation [facility] Name: Cameron Timmons Age: 55 yrs Sex: Male : 1965 Arrival Date: 01/18/2021 Time: 09:40 Bed 14 Private MD: ED Physician Idris Griffith HPI: 01/18 09:49 This 55 yrs old Male presents to ER via Ambulatory with complaints of Back jmm Pain, Nausea, R Side Pain. 09:49 The patient presents with pain that is acute. Onset: The symptoms/episode jmm began/occurred acutely, this morning. The pain radiates to the abdomen. Associated signs and symptoms: Pertinent positives: abdominal pain, dysuria, nausea, vomiting. Modifying factors: The patient symptoms are alleviated by nothing, the patient symptoms are aggravated by. The patient has experienced similar episodes in the past. This is a 55 year old male with a history of previous kidney stones that presents to the ED with complaints of right flank pain beginning this morning similar to previous kidney stones. Admits to vomiting and states he is unable to urinate. . Historical: - Allergies: 09:49 No Known Allergies; jd3 - Home Meds: 09:49 aspirin 81 mg Oral chew 1 tab once daily [Active]; losartan 50 mg Oral tab 1 tab once jd3 daily [Active]; naproxen 375 mg Oral TbEC 1 tab 2 times per day [Active]; pravastatin 40 mg Oral tab 1 tab once daily [Active]; sildenafil citrate 100mg [Active]; - PMHx: 09:49 Chronic pain; Erectile Dysfunction; familial hypoalphalipoproteinemia; GERD; Hernia; jd3 Hyperlipidemia; Hypertension; - PSHx: 09:49 Hernia repair; jd3 - Immunization history:: Adult Immunizations up to date. - Social history:: Smoking status: Patient denies any tobacco usage or history of. ROS: 09:49 Constitutional: Negative for fever, chills, and weight loss, Cardiovascular: Negative jmm for chest pain, palpitations, and edema, Respiratory: Negative for shortness of breath, cough, wheezing, and pleuritic chest pain. 09:49 Abdomen/GI: Positive for abdominal pain, nausea and vomiting. 09:49 Back: Positive for flank pain, on the right. 09:49 All other systems are negative. Exam: 09:49 Head/Face: atraumatic. Eyes: EOMI, no conjunctival erythema appreciated ENT: Moist [facility] Mucus Membranes Neck: Trachea midline, Supple Chest/axilla: Normal chest wall appearance and motion. Cardiovascular: Regular rate and rhythm. No edema appreciated Respiratory: Normal respirations, no respiratory distress appreciated 09:49 Skin: General appearance color normal MS/ Extremity: Moves all extremities, no obvious deformities appreciated, no edema noted to the lower extremities Neuro: Awake and alert, normal gait Psych: Behavior is normal, Mood is normal, Patient is cooperative and pleasant 09:49 Constitutional: The patient appears alert, awake, anxious, uncomfortable. 09:49 Abdomen/GI: Inspection: abdomen appears normal, Bowel sounds: normal, Palpation: soft, mild abdominal tenderness, in the right lower quadrant. 09:49 Back: CVA tenderness, that is moderate, is noted on the right. Vital Signs: 09:50 BP 180 / 90; Pulse 63; Resp 18 S; Temp 98.0(O); Pulse Ox 97% on R/A; Weight 75.75 kg jd3 (R); Height 5 ft. 0 in. (152.40 cm) (R); Pain 10/10; 10:24 BP 153 / 87; Pulse 65; Resp 16; Pulse Ox 98% on R/A; vg1 12:08 BP 166 / 71; Pulse 64; Resp 14; Pulse Ox 100% ; vg1 09:50 Body Mass Index 32.61 (75.75 kg, 152.40 cm) jd3 MDM: 09:46 Patient medically screened. [facility] 12:13 Data reviewed: vital signs, nurses notes. Counseling: I had a detailed discussion with yajaira the patient and/or guardian regarding: the historical points, exam findings, and any diagnostic results supporting the discharge/admit diagnosis, lab results, radiology results, the need for outpatient follow up, to return to the emergency department if symptoms worsen or persist or if there are any questions or concerns that arise at home. ED course: NEXGAR SCORE = 130. 01/18 09:47 Order name: Basic Metabolic Panel [facility] 01/18 09:47 Order name: CBC with Diff; Complete Time: 11:03 [facility] 01/18 09:47 Order name: Hepatic Function [facility] 01/18 09:47 Order name: Lipase; Complete Time: 10:45 [facility] 01/18 09:47 Order name: Basic Metabolic Panel; Complete Time: 10:45 [facility] 01/18 09:47 Order name: Liver (Hepatic) Function; Complete Time: 10:45 [facility] 01/18 09:47 Order name: CT Stone Protocol; Complete Time: 10:13 [facility] 01/18 11:00 Order name: Manual Differential; Complete Time: 11:03 [facility] 01/18 11:42 Order name: Urine Dipstick-Ancillary; Complete Time: 11:47 [facility] 01/18 09:47 Order name: IV Saline Lock; Complete Time: 09:50 [facility] 01/18 09:47 Order name: Labs collected and sent; Complete Time: 09:50 [facility] 01/18 09:47 Order name: Urine Dipstick-Ancillary (obtain specimen); Complete Time: 11:43 jm Administered Medications: 10:15 Drug: NS 0.9% 1000 ml Route: IV; Rate: 1 bolus; Site: right antecubital; vg1 11:15 Follow up: IV Status: Completed infusion; IV Intake: 1000ml vg1 10:15 Drug: Zofran (Ondansetron) 4 mg Route: IVP; Site: right antecubital; vg1 11:12 Follow up: Response: No adverse reaction; Nausea is decreased vg1 10:17 Drug: morphine 4 mg Route: IVP; Site: right antecubital; vg1 11:12 Follow up: Response: No adverse reaction; Pain is decreased vg1 11:13 Drug: Flomax (tamsulosin) 0.4 mg Route: PO; vg1 12:14 Follow up: Response: No adverse reaction vg1 12:08 Drug: Dilaudid (HYDROmorphone) 1 mg {Note: rass 0.} Route: IVP; Site: right antecubital;vg1 12:33 Follow up: Response: No adverse reaction; Pain is decreased vg1 Disposition: 15:19 Co-signature as Attending Physician, Idris Griffith MD. rn Disposition: 01/18/21 12:14 Discharged to Home. Impression: Calculus of kidney and ureter. - Condition is Stable. - Discharge Instructions: Kidney Stones, Dietary Guidelines to Help Prevent Kidney Stones. - Prescriptions for Zofran ODT 4 mg Oral tablet,disintegrating - place 1 tablet by TRANSLINGUAL route every 4-6 hours; 20 tablet. Tylenol- Codeine #3 300-30 mg Oral Tablet - take 2 tablets by ORAL route every 4-6 hours As needed; 20 tablet. Flomax 0.4 mg Oral Capsule, Sust. Release 24 hr - take 1 capsule by ORAL route once daily 1/2 hour following the same meal each day; 30 capsule. - Medication Reconciliation Form, Thank You Letter, Antibiotic Education, Prescription Opioid Use, Work release form form. - Follow up: Quirino Shen MD; When: 2 - 3 days; Reason: Recheck today's complaints, Continuance of care, Re-evaluation by your physician. Signatures: Dispatcher [employer] EDMS Magdiel Juarez PA PA jmm Nieto, Roman, MD MD rn Davies, Jonathon RN RN jChanell Pollack RN RN vg1 Corrections: (The following items were deleted from the chart) 12:33 12:14 01/18/2021 12:14 Discharged to Home. Impression: Calculus of kidney and ureter. vg1 Condition is Stable. Forms are Medication Reconciliation Form, Thank You Letter, Antibiotic Education, Prescription Opioid Use. Follow up: Quirino Shen; When: 2 - 3 days; Reason: Recheck today's complaints, Continuance of care, Re-evaluation by your physician. yajaira
--- NOTE | 2021-01-18 12:15 | ER ---
Nurse's Notes [facility] Name: Cameron Timmons Age: 55 yrs Sex: Male : 1965 Arrival Date: 01/18/2021 Time: 09:40 Bed 14 Private MD: Diagnosis: Calculus of kidney and ureter Presentation: 01/18 09:47 Chief complaint: Patient states: "right lower back pain that comes around to the front. jd3 similar, but worse pain to a previous kidney stone I had.". Coronavirus screen: At this time, the client does not indicate any symptoms associated with coronavirus-19. Ebola Screen: Patient negative for fever greater than or equal to 101.5 degrees Fahrenheit, and additional compatible Ebola Virus Disease symptoms. Initial Sepsis Screen: Does the patient meet any 2 criteria? No. Patient's initial sepsis screen is negative. Does the patient have a suspected source of infection? No. Patient's initial sepsis screen is negative. Risk Assessment: Do you want to hurt yourself or someone else? Patient reports no desire to harm self or others. Onset of symptoms was January 18, 2021. 09:47 Method Of Arrival: Ambulatory jd3 09:47 Acuity: BONITA 3 jd3 Historical: - Allergies: 09:49 No Known Allergies; jd3 - Home Meds: 09:49 aspirin 81 mg Oral chew 1 tab once daily [Active]; losartan 50 mg Oral tab 1 tab once jd3 daily [Active]; naproxen 375 mg Oral TbEC 1 tab 2 times per day [Active]; pravastatin 40 mg Oral tab 1 tab once daily [Active]; sildenafil citrate 100mg [Active]; - PMHx: 09:49 Chronic pain; Erectile Dysfunction; familial hypoalphalipoproteinemia; GERD; Hernia; jd3 Hyperlipidemia; Hypertension; - PSHx: 09:49 Hernia repair; jd3 - Immunization history:: Adult Immunizations up to date. - Social history:: Smoking status: Patient denies any tobacco usage or history of. Screenin:24 Abuse screen: Denies threats or abuse. Nutritional screening: No deficits noted. vg1 Tuberculosis screening: No symptoms or risk factors identified. Fall Risk No fall in past 12 months (0 pts). No secondary diagnosis (0 pts). IV access (20 points). Ambulatory Aid- None/Bed Rest/Nurse Assist (0 pts). Gait- Normal/Bed Rest/Wheelchair (0 pts) Mental Status- Oriented to own ability (0 pts). Total Staples Fall Scale indicates No Risk (0-24 pts). Assessment: 10:05 General: Appears uncomfortable, Behavior is calm, cooperative, appropriate for age. ll1 Pain: Complains of pain in R flank Quality of pain is described as aching. Neuro: Level of Consciousness is awake, alert, obeys commands, Oriented to person, place, time, situation, Appropriate for age [employer] are equal bilaterally. : Reports inability to void, R flank pain, dribbling of urine. 10:22 General: Appears in no apparent distress. uncomfortable, Behavior is calm, cooperative. vg1 Pain: Complains of pain in Right flank Pain currently is 10 out of 10 on a pain scale. Neuro: Level of Consciousness is awake, alert, obeys commands, Oriented to person, place, time, situation. Cardiovascular: Patient's skin is warm and dry. Respiratory: Airway is patent Respiratory effort is even, unlabored. GI: No signs and/or symptoms were reported involving the gastrointestinal system. : Reports inability to void, since this morning. EENT: No signs and/or symptoms were reported regarding the EENT system. Derm: Skin is intact, is healthy with good turgor. Musculoskeletal: Circulation, motion, and sensation intact. 11:13 Reassessment: Patient appears in no apparent distress at this time. No changes from vg1 previously documented assessment. Patient and/or family updated on plan of care and expected duration. Pain level reassessed. Patient is alert, oriented x 3, equal unlabored respirations, skin warm/dry/pink. Pt states pain has decrease from 05/30 to 610. 12:04 Reassessment: Received VO from LEIF Juarez to administer Dilaudid 1 mg IVP x1. vg1 12:08 Reassessment: Patient appears in no apparent distress at this time. No changes from vg1 previously documented assessment. Patient and/or family updated on plan of care and expected duration. Pain level reassessed. Patient is alert, oriented x 3, equal unlabored respirations, skin warm/dry/pink. 12:25 Reassessment: Patient appears in no apparent distress at this time. No changes from vg1 previously documented assessment. Patient and/or family updated on plan of care and expected duration. Pain level reassessed. Patient is alert, oriented x 3, equal unlabored respirations, skin warm/dry/pink. Vital Signs: 09:50 BP 180 / 90; Pulse 63; Resp 18 S; Temp 98.0(O); Pulse Ox 97% on R/A; Weight 75.75 kg jd3 (R); Height 5 ft. 0 in. (152.40 cm) (R); Pain 10/10; 10:24 BP 153 / 87; Pulse 65; Resp 16; Pulse Ox 98% on R/A; vg1 12:08 BP 166 / 71; Pulse 64; Resp 14; Pulse Ox 100% ; vg1 09:50 Body Mass Index 32.61 (75.75 kg, 152.40 cm) jd3 ED Course: 09:40 Patient arrived in ED. ds1 09:40 Magdiel Juarez PA is PHCP. jmm 09:40 Idris Griffith MD is Attending Physician. jmm 09:44 Henry Herrera, RN is Primary Nurse. ll1 09:45 Arm band placed on Patient placed in an exam room, on a stretcher. ll1 09:48 Triage completed. jd3 10:00 CT Stone Protocol In Process Unspecified. EDMS 10:01 Primary Nurse role handed off by Henry Herrera, RN vg1 10:01 Chanell Cuevas, RN is Primary Nurse. vg1 10:10 Inserted saline lock: 22 gauge in right antecubital area, using aseptic technique. ll1 Blood collected. 10:18 Basic Metabolic Panel Sent. sv 10:18 Hepatic Function Sent. sv 10:24 Patient has correct armband on for positive identification. Bed in low position. Call vg1 light in reach. Side rails up X 1. Adult w/ patient. 12:14 Quirino Shen MD is Referral Physician. m 12:25 No provider procedures requiring assistance completed. IV discontinued, intact, vg1 bleeding controlled, No redness/swelling at site. Pressure dressing applied. Administered Medications: 10:15 Drug: NS 0.9% 1000 ml Route: IV; Rate: 1 bolus; Site: right antecubital; vg1 11:15 Follow up: IV Status: Completed infusion; IV Intake: 1000ml vg1 10:15 Drug: Zofran (Ondansetron) 4 mg Route: IVP; Site: right antecubital; vg1 11:12 Follow up: Response: No adverse reaction; Nausea is decreased vg1 10:17 Drug: morphine 4 mg Route: IVP; Site: right antecubital; vg1 11:12 Follow up: Response: No adverse reaction; Pain is decreased vg1 11:13 Drug: Flomax (tamsulosin) 0.4 mg Route: PO; vg1 12:14 Follow up: Response: No adverse reaction vg1 12:08 Drug: Dilaudid (HYDROmorphone) 1 mg {Note: rass 0.} Route: IVP; Site: right antecubital;vg1 12:33 Follow up: Response: No adverse reaction; Pain is decreased vg1 Intake: 11:15 IV: 1000ml; Total: 1000ml. vg1 Outcome: 12:14 Discharge ordered by . yajaira 12:25 Discharged to home ambulatory. vg1 12:25 Condition: stable 12:25 Discharge instructions given to patient, Instructed on discharge instructions, follow up and referral plans. medication usage, Demonstrated understanding of instructions, follow-up care, medications, Prescriptions given X 3. 12:33 Patient left the ED. vg1 Signatures: Dispatcher [employer] EDMS Gladys David RN Magdiel Mason PA PA jmm Sanford, Demi ds1 Clyde Infante RN Chanell Witt RN RN vg1 Henry Herrera RN RN ll1
[2021-01-18] MEDS ORDERED: HYDROMORPHONE HCL 2 MG/ML inj ONE (12:23)
[2021-01-18 12:41] VITALS: TEMP 98
[2021-01-18 12:44] VITALS: BP 166/71; O2SAT 100
== END 2021-01-18 12:33 | disposition home or self-care (01) ==
LOC: ER 09:37
DX: N20.2 Calculus of kidney with calculus of ureter (principal); I10 Essential (primary) hypertension; E78.5 Hyperlipidemia, unspecified; G89.29 Other chronic pain; Z79.82 Long term (current) use of aspirin
CPT/HCPCS: 96361; 85025; 80048; 36415; 80076; 81003; 83690; 76377; 74176; 96375; 96374; 99284; J1170; J7030; J2405

== ENCOUNTER 2022-10-06 22:19 | Emergency (ER) | payer OTHER ==
[2022-10-06] MEDS ORDERED: NA CHLORIDE 0.9% 1,000 ML ONE (23:13)
[2022-10-06 23:24] LABS: Urine Blood Trace-intact (Negative); Urine Glucose Negative (Negative); Urine Protein 1+ (Negative); Urine Specific Gravity 1.025 (1.005-1.030)
[2022-10-06] MEDS ORDERED: ACETAMINOPHEN 500 MG TAB ONE (23:28)
[2022-10-06 23:41] LABS: Urine Bacteria <20 /HPF (<20); Urine Mucus 1+ /HPF (None Seen); Urine RBC <5 /HPF (None Seen)
[2022-10-06 23:59] LABS: Absolute Lymphocytes (CBC) 0.4 K/uL (0.7-4.9); Hematocrit 40.4 % (39.6-49.0); Lymphocytes % 4.1 % (15.3-44.8); MCV 92.8 fL (80-100); MPV 8.4 fL (7.6-11.3); RBC Red Blood Cell Count 4.35 M/uL (4.33-5.43)
[2022-10-07 00:01] LABS: Protime INR 0.94
[2022-10-07] MEDS ORDERED: ONDANSETRON 4 MG/2 ML VIAL ONE (00:05)
[2022-10-07 00:08] LABS: SARS-COV-2 RT PCR NEGATIVE (NEGATIVE)
[2022-10-07 00:18] LABS: Albumin 3.6 g/dL (3.4-5.0); Bilirubin Direct 0.2 mg/dL (0-0.2); Bilirubin Total 0.5 mg/dL (0.2-1.0); Potassium 3.7 mmol/L (3.5-5.1); Protein, Total 7.1 g/dL (6.4-8.2); Troponin High Sensitivity 10.6 pg/mL (<58.9)
[2022-10-07] MEDS ORDERED: NA CHLORIDE 0.9% 1,000 ML ONE (02:01)
[2022-10-07] MEDS ORDERED: IBUPROFEN 400 MG TAB ONE (02:52)
--- NOTE | 2022-10-07 03:15 | ER ---
Nurse's Notes [facility] Name: Cameron Timmons Age: 57 yrs Sex: Male : 1965 Arrival Date: 10/06/2022 Time: 22:23 Bed 20 Private MD: Diagnosis: Fever presenting with conditions classified elsewhere;Vomiting, unspecified;Headache Presentation: 10/06 22:40 Chief complaint: Patient states: "I feel very shaky and cold, and I have a headache, as6 and I started throwing up". Coronavirus screen: Client presents with at least one sign or symptom that may indicate coronavirus-19. Ebola Screen: No symptoms or risks identified at this time. Initial Sepsis Screen: Does the patient meet any 2 criteria? Temp <36.0*C (96.8*F)) or > 38.3*C (100.9*F). HR > 90 bpm. Yes Does the patient have a suspected source of infection? No. Patient's initial sepsis screen is negative. Risk Assessment: Do you want to hurt yourself or someone else? Patient reports no desire to harm self or others. Onset of symptoms was October 06, 2022. 22:40 Method Of Arrival: Ambulatory as6 22:40 Acuity: BONITA 2 as6 Triage Assessment: 22:50 General: see nurse assessment. pf1 Historical: - Allergies: 22:43 No Known Allergies; as6 - PMHx: 22:43 Hypertension; Hyperlipidemia; Hernia; GERD; familial hypoalphalipoproteinemia; Erectile as6 Dysfunction; Chronic pain; - PSHx: 22:43 None; as6 - Immunization history:: Client reports receiving the 2nd dose of the Covid vaccine, pfizer Flu vaccine is not up to date. - Social history:: Smoking status: Patient denies any tobacco usage or history of. Screenin:00 [facility] ED Fall Risk Assessment (Adult) History of falling in the last 3 months, pf1 including since admission No falls in past 3 months (0 pts) Confusion or Disorientation No (0 pts) Intoxicated or Sedated No (0 pts) Impaired Gait No (0 pts) Mobility Assist Device Used No (0 pt) Altered Elimination No (0 pt) Score/Fall Risk Level 0 - 2 = Low Risk Oriented to surroundings, Maintained a safe environment, Educated pt \\T\\ family on fall prevention, incl call for assistance when getting out of bed, Assessed \\T\\ reinforced patient's understanding of fall precautions, Provided non-skid footwear, Hourly rounding (assess needs \\T\\ fall precautionary measures) done, Used ambulatory aids as needed (educated on \\T\\ assisted with), Used gait belt as appropriate. 23:00 Abuse screen: Denies threats or abuse. Nutritional screening: No deficits noted. pf1 Tuberculosis screening: No symptoms or risk factors identified. Assessment: 22:50 General: Appears in no apparent distress. uncomfortable, well groomed, well developed, pf1 Behavior is calm, cooperative, appropriate for age, quiet. 22:50 General: Patient C/O headache, back pain, shaky with fever, cough with nausea and pf1 vomiting x 1. Pain: Denies pain. Neuro: No deficits noted. Level of Consciousness is awake, alert, obeys commands, Oriented to person, place, time, situation. Neuro: Reports headache since today. Patient denies any headache at this time. Cardiovascular: No deficits noted. Capillary refill < 3 seconds Patient's skin is warm and dry. Respiratory: Reports cough that is Airway is patent Trachea midline Respiratory effort is even, unlabored, Respiratory pattern is regular, symmetrical, Breath sounds are clear bilaterally. GI: Reports nausea, vomiting. GI: No deficits noted. Abdomen is flat, non-distended, Bowel sounds present X 4 quads. Abd is soft and non tender X 4 quads. : No deficits noted. No signs and/or symptoms were reported regarding the genitourinary system. EENT: No deficits noted. No signs and/or symptoms were reported regarding the EENT system. Derm: No deficits noted. No signs and/or symptoms reported regarding the dermatologic system. Musculoskeletal: Circulation, motion, and sensation intact. Capillary refill < 3 seconds, Range of motion: intact in all extremities. 23:50 Reassessment: Patient appears in no apparent distress at this time. No changes from pf1 previously documented assessment. Patient and/or family updated on plan of care and expected duration. Pain level reassessed. Patient states feeling better. Patient states symptoms have improved. 10/07 00:50 Reassessment: Patient appears in no apparent distress at this time. No changes from pf1 previously documented assessment. Patient and/or family updated on plan of care and expected duration. Pain level reassessed. Patient is alert, oriented x 3, equal unlabored respirations, skin warm/dry/pink. Patient states feeling better. Patient states symptoms have improved. 02:00 Reassessment: Patient appears in no apparent distress at this time. No changes from pf1 previously documented assessment. Patient and/or family updated on plan of care and expected duration. Pain level reassessed. Patient is alert, oriented x 3, equal unlabored respirations, skin warm/dry/pink. Patient states feeling better. Patient states symptoms have improved. 02:00 Neuro: No deficits noted. Reports headache. pf1 03:00 Reassessment: Patient appears in no apparent distress at this time. Patient and/or pf1 family updated on plan of care and expected duration. Pain level reassessed. Patient is alert, oriented x 3, equal unlabored respirations, skin warm/dry/pink. Patient states feeling better. Patient states symptoms have improved. Vital Signs: 10/06 22:40 BP 161 / 90; Pulse 137; Resp 19 S; Temp 103.3(O); Pulse Ox 94% on R/A; Weight 68.95 kg as6 (R); Height 5 ft. 0 in. (152.40 cm) (R); Pain 0/10; 23:30 BP 148 / 88; Pulse 125; Resp 23; Temp 102.6(O); Pulse Ox 95% on R/A; Pain 0/10; pf1 17 00:30 BP 135 / 83; Pulse 117; Resp 23; Pulse Ox 94% on R/A; Pain 0/10; pf1 01:30 BP 128 / 76; Pulse 93; Resp 18; Temp 100.2(O); Pulse Ox 94% on R/A; Pain 4/10; pf1 02:30 BP 121 / 70; Pulse 97; Resp 16; Pulse Ox 95% on R/A; Pain 4/10; pf1 03:15 BP 113 / 75; Pulse 97; Resp 18; Temp 98.1(O); Pulse Ox 95% on R/A; Pain 4/10; pf1 10/06 22:40 Body Mass Index 29.69 (68.95 kg, 152.40 cm) as6 ED Course: 10/06 22:23 Patient arrived in ED. ja2 22:26 Go Aranda PA is PHCP. cp 22:26 Rashi Del Cid MD is Attending Physician. cp 22:43 Triage completed. as6 22:44 Arm band placed on. as6 22:50 Patient has correct armband on for positive identification. Placed in gown. Bed in low pf1 position. Call light in reach. 22:50 No provider procedures requiring assistance completed. pf1 23:00 Radha pandya, RN is Primary Nurse. pf1 23:22 Urine Microscopic Only Sent. pf1 23:22 COVID-19/FLU A+B Sent. pf1 23:33 XRAY Chest (1 view) In Process Unspecified. EDMS 23:45 Inserted saline lock: 20 gauge in right antecubital area, using aseptic technique. pf1 Blood collected. 23:52 Lactate w/ 2H reflex if indic. Sent. pf1 23:52 Blood Culture Adult (2) Sent. pf1 23:52 Procalcitonin Sent. pf1 23:52 Basic Metabolic Panel Sent. pf1 23:52 CBC with Diff Sent. pf1 23:53 LFT's Sent. pf1 23:53 Magnesium Sent. pf1 23:53 NT PRO-BNP Sent. pf1 23:53 PT-INR Sent. pf1 23:53 Troponin HS Sent. pf1 02 00:48 Notified Nurse Practitioner and/or Physician Emblem Drawer In of a critical lab result(s), bb lactate of 2.2 Go YADAV notified. 01:35 CT Chest, Abdomen, Pelvis - W/Contrast In Process Unspecified. EDMS 03:20 IV discontinued, intact, bleeding controlled, No redness/swelling at site. Pressure pf1 dressing applied. Administered Medications: 10/06 23:25 Drug: Tylenol 1000 mg Route: PO; pf1 10/07 00:25 Follow up: Response: No adverse reaction; Marked relief of symptoms; Temperature is pf1 decreased 10/06 23:45 Drug: NS 0.9% 1000 ml Route: IV; Rate: 1 bolus; Site: right antecubital; pf1 10/07 00:30 Follow up: Response: No adverse reaction; Marked relief of symptoms pf1 01:00 Follow up: IV Status: Completed infusion; IV Intake: 1000ml pf1 00:00 Drug: Zofran (Ondansetron) 4 mg Route: IVP; Site: right antecubital; pf1 00:24 Follow up: Response: No adverse reaction; Marked relief of symptoms pf1 01:00 Follow up: Response: No adverse reaction; Marked relief of symptoms; Nausea is decreasedpf1 02:00 Drug: NS 0.9% 1000 ml Route: IV; Rate: 500 ml/hr; Site: right antecubital; pf1 02:52 Follow up: Response: No adverse reaction; Marked relief of symptoms pf1 03:31 Follow up: Response: No adverse reaction; Marked relief of symptoms; IV Status: pf1 Completed infusion; IV Intake: 700ml 02:50 Drug: Ibuprofen 800 mg Route: PO; pf1 03:11 Follow up: Response: No adverse reaction; Marked relief of symptoms pf1 Medication: 03:33 VIS not applicable for this client. pf1 Intake: 01:00 IV: 1000ml; Total: 1000ml. pf1 03:31 IV: 700ml; Total: 1700ml. pf1 Outcome: 03:14 Discharge ordered by . kdr 03:32 Discharged to home ambulatory, with family. pf1 03:32 Condition: improved 03:32 Discharge instructions given to patient, family, Instructed on discharge instructions, follow up and referral plans. Demonstrated understanding of instructions, follow-up care, medications, Prescriptions given X 2. 03:33 Patient left the ED. pf1 Signatures: Dispatcher [employer] EDMS Rashi Del Cid MD MD kdr Taylor Fuller RN RN Go Allen PA PA cp Alexander, Jessica ja2 Slawson, Ashby, RN RN as6 Radha pandya RN RN pf1
--- NOTE | 2022-10-07 03:15 | EDPHYS ---
Physician Documentation [facility] Name: Cameron Timmons Age: 57 yrs Sex: Male : 1965 Arrival Date: 10/06/2022 Time: 22:23 Bed 20 Private MD: ED Physician Rashi Del Cid HPI: 10/06 23:05 This 57 yrs old Male presents to ER via Ambulatory with complaints of cp Vomiting, Fever, Headache. 23:05 The patient reports fever, with an emergency department temperature of 103.6 degrees cp Fahrenheit. Onset: The symptoms/episode began/occurred this evening. 23:05 Associated signs and symptoms: Pertinent positives: cough, headache, nausea, vomiting, cp Pertinent negatives: diarrhea, neck pain, neck stiffness. Historical: - Allergies: 22:43 No Known Allergies; as6 - PMHx: 22:43 Hypertension; Hyperlipidemia; Hernia; GERD; familial hypoalphalipoproteinemia; Erectile as6 Dysfunction; Chronic pain; - PSHx: 22:43 None; as6 - Immunization history:: Client reports receiving the 2nd dose of the Covid vaccine, [employer] [facility] Flu vaccine is not up to date. - Social history:: Smoking status: Patient denies any tobacco usage or history of. ROS: 23:10 Constitutional: Positive for fever. cp 23:10 Eyes: Negative for injury, pain, redness, and discharge. cp 23:10 ENT: Negative for drainage from ear(s), ear pain, sore throat, difficulty swallowing, difficulty handling secretions. 23:10 Cardiovascular: Negative for chest pain, edema. 23:10 Respiratory: Positive for cough, Negative for shortness of breath, wheezing. 23:10 Abdomen/GI: Positive for nausea, vomiting. 23:10 Back: Positive for pain at rest. 23:10 Neuro: Positive for headache, Negative for dizziness, weakness. 23:10 All other systems are negative. cp Exam: 23:15 Constitutional: The patient appears in no acute distress, alert, awake, cp non-diaphoretic, non-toxic, well developed, well nourished, appears ill 23:15 Head/Face: Normocephalic, atraumatic. cp 23:15 Eyes: Periorbital structures: appear normal, Conjunctiva: normal, no exudate, no cp injection, Sclera: no appreciated abnormality, Lids and lashes: appear normal, bilaterally. 23:15 ENT: External ear(s): are unremarkable, Ear canal(s): are normal, clear, TM's: cp dullness, bilaterally, Nose: is normal, Mouth: Lips: moist, Oral mucosa: moist, Posterior pharynx: Airway: no evidence of obstruction, patent, Tonsils: with erythema, no enlargement, no exudate, erythema, that is mild, exudate, is not appreciated, Voice: is normal. 23:15 Neck: ROM/movement: is normal, is supple, without pain, no range of motions limitations, no meningismus. 23:15 Chest/axilla: Inspection: normal, Palpation: is normal, no crepitus, no tenderness. 23:15 Cardiovascular: Rate: tachycardic, Rhythm: regular, Edema: is not appreciated, JVD: is not appreciated. 23:15 Respiratory: the patient does not display signs of respiratory distress, Respirations: normal, no use of accessory muscles, no retractions, labored breathing, is not present, Breath sounds: are clear throughout, no decreased breath sounds, no stridor, no wheezing. 23:15 Abdomen/GI: Inspection: abdomen appears normal, Bowel sounds: active, Palpation: abdomen is soft and non-tender, in all quadrants. 23:15 Back: pain, that is mild, of the mid back area, ROM is painful, with all movement. 23:15 Skin: cellulitis, is not appreciated, no rash present. 23:15 Neuro: Orientation: to person, place \T\ time. Mentation: is normal, Cerebellar function: is grossly normal, Motor: moves all fours, strength is normal, Sensation: is normal. 23:33 ECG was reviewed by the Attending Physician. cp Vital Signs: 22:40 BP 161 / 90; Pulse 137; Resp 19 S; Temp 103.3(O); Pulse Ox 94% on R/A; Weight 68.95 kg as6 (R); Height 5 ft. 0 in. (152.40 cm) (R); Pain 0/10; 23:30 BP 148 / 88; Pulse 125; Resp 23; Temp 102.6(O); Pulse Ox 95% on R/A; Pain 0/10; pf1 10/07 00:30 BP 135 / 83; Pulse 117; Resp 23; Pulse Ox 94% on R/A; Pain 0/10; pf1 01:30 BP 128 / 76; Pulse 93; Resp 18; Temp 100.2(O); Pulse Ox 94% on R/A; Pain 4/10; pf1 02:30 BP 121 / 70; Pulse 97; Resp 16; Pulse Ox 95% on R/A; Pain 4/10; pf1 03:15 BP 113 / 75; Pulse 97; Resp 18; Temp 98.1(O); Pulse Ox 95% on R/A; Pain 4/10; pf1 10/06 22:40 Body Mass Index 29.69 (68.95 kg, 152.40 cm) as6 MDM: 10/06 22:53 Patient medically screened. cp 23:00 Differential diagnosis: Nonspecific abd pain, gastritis, cholecystitis, appendicitis, cp diverticulitis, viral gastroenteritis, gastroenteritis, COVID-19, influenza, UTI, sepsis, bacteremia. 10/07 02:46 Data reviewed: vital signs, nurses notes, lab test result(s), EKG, radiologic studies, cp CT scan, plain films. Consideration of Admission/Observation Escalation of care including admission/observation considered. I considered the following discharge prescriptions or medication management in the emergency department Medications were administered in the Emergency Department. See MAR. Independent interpretation of the following test(s) in the Emergency Department EKG: See my EKG interpretation above X-Ray: My interpretation is chest xray negative for focal pneumonia. Test considered but Not performed: Other Details lumbar puncture. Counseling: I had a detailed discussion with the patient and/or guardian regarding: the historical points, exam findings, and any diagnostic results supporting the discharge/admit diagnosis, lab results, radiology results, will repeat lactate and if normal will discharge to home for continued monitoring. 10/06 22:56 Order name: Basic Metabolic Panel; Complete Time: 00:37 cp 10/07 00:37 Interpretation: Normal except: CL 108; GLUC 125; GFR 69. cp 10/06 22:56 Order name: CBC with Diff; Complete Time: 00:01 cp 10/07 00:37 Interpretation: Normal except: KB% 93.5; LYM% 4.1; MN% 1.8; NEUT A 8.4; LYMA 0.4. cp 10/06 22:56 Order name: LFT's; Complete Time: 00:37 10/06 22:56 Order name: Magnesium; Complete Time: 00:37 10/06 22:56 Order name: NT PRO-BNP; Complete Time: 00:37 10/06 22:56 Order name: PT-INR; Complete Time: 00:37 10/06 22:56 Order name: Troponin HS; Complete Time: 00:37 10/06 22:56 Order name: COVID-19/FLU A+B; Complete Time: 00:37 10/07 00:37 Interpretation: Reviewed. 10/06 22:56 Order name: Urine Microscopic Only; Complete Time: 00:01 10/06 22:56 Order name: Lactate w/ 2H reflex if indic.; Complete Time: 01:08 10/06 22:56 Order name: Blood Culture Adult (2) 10/06 22:56 Order name: Procalcitonin; Complete Time: 01:08 10/07 01:08 Interpretation: Abnormal: Procalcitonin 0.80. 10/06 23:24 Order name: Urine Dipstick-Ancillary; Complete Time: 00:01 EDGA 10/06 23:47 Order name: Urine Culture [facility] 10/06 22:56 Order name: XRAY Chest (1 view) 10/06 22:56 Order name: EKG; Complete Time: 22:57 10/06 22:56 Order name: Cardiac monitoring; Complete Time: 23:22 10/06 22:56 Order name: EKG - Nurse/Tech; Complete Time: 23:52 10/06 22:56 Order name: IV Saline Lock; Complete Time: 23:52 10/06 22:56 Order name: Labs collected and sent; Complete Time: 23:52 10/06 22:56 Order name: O2 Per Protocol; Complete Time: 23:22 10/06 22:56 Order name: O2 Sat Monitoring; Complete Time: 23:52 10/06 22:56 Order name: Urine Dipstick-Ancillary (obtain specimen); Complete Time: 23:22 10/07 00:45 Order name: CT Chest, Abdomen, Pelvis - W/Contrast 10/07 02:28 Order name: Lactate w/ 2H reflex if indic.; Complete Time: 03:13 10/07 02:46 Order name: PO challenge; Complete Time: 03:11 cp EC/16 23:33 Rate is 126 beats/min. Rhythm is regular. IN interval is normal. QRS interval is cp normal. QT interval is normal. T waves are Inverted in lead aVR. Interpreted by me. Reviewed by me. Administered Medications: 23:25 Drug: Tylenol 1000 mg Route: PO; pf1 10/07 00:25 Follow up: Response: No adverse reaction; Marked relief of symptoms; Temperature is pf1 decreased 10/06 23:45 Drug: NS 0.9% 1000 ml Route: IV; Rate: 1 bolus; Site: right antecubital; pf1 10/07 00:30 Follow up: Response: No adverse reaction; Marked relief of symptoms pf1 01:00 Follow up: IV Status: Completed infusion; IV Intake: 1000ml pf1 00:00 Drug: Zofran (Ondansetron) 4 mg Route: IVP; Site: right antecubital; pf1 00:24 Follow up: Response: No adverse reaction; Marked relief of symptoms pf1 01:00 Follow up: Response: No adverse reaction; Marked relief of symptoms; Nausea is decreasedpf1 02:00 Drug: NS 0.9% 1000 ml Route: IV; Rate: 500 ml/hr; Site: right antecubital; pf1 02:52 Follow up: Response: No adverse reaction; Marked relief of symptoms pf1 03:31 Follow up: Response: No adverse reaction; Marked relief of symptoms; IV Status: pf1 Completed infusion; IV Intake: 700ml 02:50 Drug: Ibuprofen 800 mg Route: PO; pf1 03:11 Follow up: Response: No adverse reaction; Marked relief of symptoms pf1 Disposition: 03:14 Co-signature as Attending Physician, Rashi Del Cid MD I agree with the assessment and kdr plan of care. Disposition Summary: 10/07/22 03:14 Discharge Ordered Location: Home kdr Problem: new kdr Symptoms: have improved kdr Condition: Stable kdr Diagnosis - Fever presenting with conditions classified elsewhere kdr - Vomiting, unspecified kdr - Headache kdr Followup: cp - With: Private Physician - When: 1 - 2 days - Reason: Worsening of condition Discharge Instructions: - Discharge Summary Sheet cp - Fever, Adult cp - General Headache Without Cause cp - Vomiting, Adult cp - Form - Return To Work pf1 Forms: - Medication Reconciliation Form kdr - Thank You Letter kdr Prescriptions: - Ibuprofen 800 mg Oral Tablet - take 1 tablet by ORAL route every 8 hours As needed take with food; 30 tablet; cp Refills: 0, Product Selection Permitted - Zofran 4 mg Oral Tablet - take 1 tablet by ORAL route every 12 hours As needed; 20 tablet; Refills: 0, cp Product Selection Permitted Signatures: Dispatcher [employer] Rashi Bray MD MD kdr Attema, Lee, LIVING SPECIALIST-C LIVING SPECIALIST-Cla1 Go Aranda PA PA cp Slawson, Ashby, RN RN as6 Radha pandya RN RN pf1
[2022-10-07 04:21] VITALS: O2SAT 95
[2022-10-07 04:23] VITALS: BP 113/75; TEMP 98.1
--- NOTE | 2022-10-07 16:01 | EKG ---
Test Date: 2022-10-06 Test Time: 23:31:53 Wire Spiral Binder: KELVIN MEASUREMENT RESULTS: Intervals: Rate: 126 NJ: 152 QRSD: 82 QT: 288 QTc: 417 Mears: P: 37 NJ: 152 QRS: -36 T: 16 INTERPRETIVE STATEMENTS: Sinus tachycardia Possible Left atrial enlargement Left axis deviation Left ventricular hypertrophy Abnormal ECG Compared to ECG 03/27/2018 13:33:49 Left-axis deviation now present Sinus bradycardia no longer present T-wave abnormality no longer present Electronically Signed On 10-07-22 15:59:58 CLASSROOM COORDINATOR by Tucker Rangel
--- NOTE | 2022-10-09 16:33 | RAD REPORT ---
EXAM DESCRIPTION: CT - Chest Abdomen Pelvis W Cont - 10/07/2022 6:50 am CLINICAL HISTORY: The patient is 57 years old and is Male; Cough, chills, fever, and vomiting TECHNIQUE: Axial computed tomography images of the chest, abdomen and pelvis with intravenous contra st. Sagittal and coronal reformatted images were created and reviewed. This CT exam was performed using one or more of the following dose reduction techniques: automated exposure control, adjustme nt of the mA and/or kV according to patient size, and/or use of iterative reconstruction technique. COMPARISON: 01/18/2021 CT abdomen pelvis without contrast FINDINGS: CHEST: LUNGS: Incidental right upper lobe tracheal bronchus noted. PLEURAL SPACE: Unremarkable. No significant effusion. No pneumothorax. HEART: Unremarkable. No cardiomegaly. No significant pericardial effusion. No significant co ronary artery calcifications. ABDOMEN: LIVER: Multiple too small to characterize low-attenuation foci within the right hepatic lobe. In t he absence of known or suspected metastatic disease, these are favored to reflect hepatic cysts or he mangiomas and no dedicated imaging follow-up recommended for this particular finding. GALLBLADDER AND BILE DUCTS: Unremarkable. No calcified stones. No ductal dilation. PANCREAS: Unremarkable. No ductal dilation. No mass. SPLEEN: Unremarkable. No splenomegaly. ADRENALS: Unremarkable. No mass. KIDNEYS AND URETERS: Small bilateral nonobstructive intrarenal stones. Prominent bilateral renal calyces with multiple simple left-sided parapelvic cysts. No dedic ated imaging follow-up recommended for this particular finding. No solid mass. No overt hydronephrosis. No obstructive intrarenal or intraureteral stones. STOMACH AND BOWEL: Colonic diverticulosis, greatest in the sigmoid colon, without evidence of acut e diverticulitis. No obstruction. PELVIS: APPENDIX: No findings to suggest acute appendicitis. BLADDER: Unremarkable. No mass. REPRODUCTIVE: Unremarkable as visualized. CHEST, ABDOMEN and PELVIS: INTRAPERITONEAL SPACE: Unremarkable. No significant fluid collection. No free air. BONES/JOINTS: See above. SOFT TISSUES: Unremarkable. VASCULATURE: Unremarkable. No aortic aneurysm. LYMPH NODES: Unremarkable. No enlarged lymph nodes. IMPRESSION: 1. No acute abnormality of the chest, abdomen, or pelvis. 2. Multiple too small to characterize low-attenuation foci within the right hepatic lobe. In the ab sence of known or suspected metastatic disease, these are favored to reflect hepatic cysts or hemangi omas. No dedicated imaging follow-up recommended for this particular finding. 3. Colonic diverticulosis, greatest in the sigmoid colon, without evidence of acute diverticulitis. 4. Small bilateral nonobstructive intrarenal stones. 5. Incidental right upper lobe tracheal bronchus noted. Electronically signed by: Chip Mcclendon MD 10/07/2022 2:30 AM IS ARCHITECT Due to temporary technical issues with the PACS/Fluency reporting system, reports are being signed by the in house radiologists without review as a courtesy to insure prompt reporting. The interpreting radiologist is fully responsible for the content of the report.
--- NOTE | 2022-10-09 16:43 | RAD REPORT ---
EXAM DESCRIPTION: RAD - Chest Single View - 10/06/2022 11:31 pm CLINICAL HISTORY: COUGH. COMPARISON: None. TECHNIQUE: Single view AP chest radiograph(s). FINDINGS: Mild perihilar interstitial thickening. No infiltrate identified. No pleural effusion. No pneumothorax. Nonenlarged cardiomediastinal silhouette. No significant osseous abnormality. IMPRESSION: Mild perihilar interstitial thickening. No infiltrate identified. Electronically signed by: Shikha Parham MD 10/07/2022 12:02 AM SEASONAL SALES ASSOCIATE Due to temporary technical issues with the PACS/Fluency reporting system, reports are being signed by the in house radiologists without review as a courtesy to insure prompt reporting. The interpreting radiologist is fully responsible for the content of the report.
== END 2022-10-07 03:33 | disposition home or self-care (01) ==
LOC: ER 22:19
DX: R50.9 Fever, unspecified (principal); R11.10 Vomiting, unspecified; R51.9 Headache, unspecified; Z20.822 Contact with and (suspected) exposure to COVID-19; I10 Essential (primary) hypertension
CPT/HCPCS: 96361; 93005; 87040 ×2; 87088; 85025; 87086; 80048; 36415 ×2; 83735; 87205 ×4; 85610; 80076; 83605 ×2; 87077 ×2; 87186 ×2; 84484; 84145; 83880; 0240U; 71260; 74177; 71045; 96374; 99284; Q9967; J7030 ×2; J2405; 81003; 81015